=== PATIENT | female | born 1990 | race American Indian/Alaskan Native ===

== ENCOUNTER 2017-11-26 22:22 | Emergency (ER) | payer MEDICAID ==
[2017-11-27 00:47] LABS: Basophils % (Auto) 0.2 % (0.0-1.8); Eosinophils # (Auto) 0.5 K/mm3 (0.0-0.4); Eosinophils % (Auto) 3.8 % (0.0-4.3); Hematocrit 35.9 % (30.3-42.9); Hemoglobin 11.9 gm/dl (10.1-14.3); Lymphocytes # (Auto) 2.3 K/mm3 (1.2-5.4); Mean Corpuscular HGB Conc 33 % (30-34); Mean Corpuscular Hemoglobin 28 pg (28-32); Mean Corpuscular Volume 83 fl (79-97); Monocytes # (Auto) 0.7 K/mm3 (0.0-0.8); Monocytes % (Auto) 5.6 % (0.0-7.3); Platelet Count 212 K/mm3 (140-440); Red Blood Count 4.32 M/mm3 (3.65-5.03)
--- NOTE | 2017-11-27 03:00 | Ultrasound Report ---
FINAL REPORT PROCEDURE: US OB < = 14 WEEKS FETUS TECHNIQUE: Real-time transabdominal sonography of the uterus, placenta, amniotic fluid, adnexa, and fetus was performed with image documentation. Measurements were obtained to determine age/size. M-mode Doppler was used to document heartbeat. CPT 19164 HISTORY: vaginal bleeding COMPARISON: No prior studies are available for comparison. FINDINGS: CRL: 12.3 mm, which corresponds to a gestational age of: 7 weeks, 5 days. Yolk Sac: Normal. Embryonic Cardiac Activity: 156 beats per minute Gestational Sac: Normal. Amniotic fluid: Normal. Cervix: Normal. Right Ovary: Normal. Left Ovary: Normal. Estimated delivery date: 07/11/2018 Uterus and adnexa: Normal. IMPRESSION: Single live intrauterine gestation at approximately 7 weeks and 5 days. EDC by US 07/11/2018
[2017-11-27] MEDS ORDERED: NACL 0.9% 1000 ML 1,000 ML IV ONE (03:01)
[2017-11-27] MEDS ORDERED: ZOFRAN IV ONE (03:01)
--- NOTE | 2017-11-27 03:01 | Ultrasound Report ---
FINAL REPORT PROCEDURE: US OB TRANSVAGINAL TECHNIQUE: Real-time transvaginal sonography of the uterus, placenta, amniotic fluid, adnexa, and fetus was performed with image documentation. Measurements were obtained to determine age/size. M-mode Doppler was used to document heartbeat. HISTORY: vaginal bleeding COMPARISON: No prior studies are available for comparison. FINDINGS: CRL: 12.3 mm, which corresponds to a gestational age of: 7 weeks, 5 days. Yolk Sac: Normal. Embryonic Cardiac Activity: 156 beats per minute Gestational Sac: Normal. Amniotic fluid: Normal. Cervix: Normal. Right Ovary: Normal. Left Ovary: Normal. Estimated delivery date: 07/11/2018 Uterus and adnexa: Normal. IMPRESSION: Single live intrauterine gestation at approximately 7 weeks and 5 days. EDC by US 07/11/2018
[2017-11-27 03:15] LABS: Bilirubin,Urine NEG (Negative); Blood,Urine NEG (Negative); Color,Urine Yellow (Yellow); Hyaline Casts,Urine 1 /LPF; Mucus,Urine FEW /HPF; Protein,Urine <15 mg/dL mg/dL (Negative); Urobilinogen,Urine < 2.0 mg/dL (<2.0)
[2017-11-27 03:29] LABS: Alanine Aminotransferase 10 units/L (7-56); Albumin 4.1 g/dL (3.9-5); BUN/Creatinine Ratio 10; Blood Urea Nitrogen 7 mg/dL (7-17); Calcium 9.3 mg/dL (8.4-10.2); Hemolysis Index 3
--- NOTE | 2017-11-27 03:34 | Emergency Department Report ---
HPI - General Chief Complaint: Vaginal Bleeding Time Seen by Provider: 11/27/17 02:54 - HPI HPI: 27-year-old female presents to the emergency department with complaint of a few weeks of nausea and vomiting to the point where she says "I cannot keep anything down." She also complains of some vaginal spotting that started earlier today. She is currently about 8 weeks . With this she is with 1 live child and 2 previous abortions. She has not taken anything for her symptoms prior presentation. She does not have any OB/ DISSOLVER OPERATOR at this current time. No recent travel or sick contacts at home. ED Past Medical Hx - Past Medical History Previous Medical History?: No - Surgical History Additional Surgical History: Umbilical Hernia Repair, - Social History Smoking Status: Never Smoker Substance Use Type: None - Medications Home Medications: Home Medications Medication Instructions Recorded Confirmed Last Taken Type Ondansetron [Zofran ODT TAB] 4 mg PO Q8H PRN #10 tab.rapdis 11/27/17 Unknown Rx Tablet 1 tab PO DAILY 11/27/17 11/27/17 Unknown History ED Review of Systems ROS: Stated complaint: APPROX 8 WKS PREG, VAGINAL BLEEDING, NAUSEA AND VO Other details as noted in HPI Comment: All other systems reviewed and negative Constitutional: denies: chills, fever Eyes: denies: eye pain, eye discharge, vision change ENT: denies: ear pain, throat pain Respiratory: denies: cough, shortness of breath, wheezing Cardiovascular: denies: chest pain, palpitations Gastrointestinal: nausea, vomiting Genitourinary: other (vaginal bleeding). denies: discharge Musculoskeletal: denies: back pain, joint swelling, arthralgia Skin: denies: rash, lesions Neurological: denies: headache, weakness, paresthesias Physical Exam - Physical Exam Vital Signs: Vital Signs 11/26/17 11/27/17 11/27/17 23:20 00:13 02:43 Temperature 98.3 F 98.3 F 98.6 F Pulse Rate 75 77 67 Respiratory 18 18 16 Rate Blood Pressure 106/60 106/60 Blood Pressure 103/51 [Left] O2 Sat by Pulse 100 100 100 Oximetry Physical Exam: GENERAL: The patient is well-developed well-nourished. HENT: Normocephalic. Atraumatic. Patient has moist mucous membranes. EYES: Extraocular motions are intact. NECK: Supple. No meningitic signs are noted. There is no adenopathy noted. CHEST/LUNGS: Clear to auscultation. There is no respiratory distress noted. HEART/CARDIOVASCULAR: Regular. There is no tachycardia. There is no murmur. ABDOMEN: Abdomen is soft, nontender. Patient has normal bowel sounds. SKIN: Skin is warm and dry. NEURO: patient is awake, alert, and oriented. The patient is cooperative. The patient has no focal neurologic deficits. The patient has normal speech and gait. MUSCULOSKELETAL: There is no tenderness or deformity. There is no limitation range of motion. There is no evidence of acute injury. ED Course Vital Signs 11/26/17 11/27/17 11/27/17 23:20 00:13 02:43 Temperature 98.3 F 98.3 F 98.6 F Pulse Rate 75 77 67 Respiratory 18 18 16 Rate Blood Pressure 106/60 106/60 Blood Pressure 103/51 [Left] O2 Sat by Pulse 100 100 100 Oximetry ED Medical Decision Making - Lab Data Result diagrams: 11/27/17 00:24 11/27/17 03:00 - Radiology Data Radiology results: report reviewed PROCEDURE: US OB TRANSVAGINAL TECHNIQUE: Real-time transvaginal sonography of the uterus, placenta, amniotic fluid, adnexa, and fetus was performed with image documentation. Measurements were obtained to determine age/size. M-mode Doppler was used to document heartbeat. HISTORY: vaginal bleeding COMPARISON: No prior studies are available for comparison. FINDINGS: CRL: 12.3 mm, which corresponds to a gestational age of: 7 weeks, 5 days. Yolk Sac: Normal. Embryonic Cardiac Activity: 156 beats per minute Gestational Sac: Normal. Amniotic fluid: Normal. Cervix: Normal. Right Ovary: Normal. Left Ovary: Normal. Estimated delivery date: 07/11/2018 Uterus and adnexa: Normal. IMPRESSION: Single live intrauterine gestation at approximately 7 weeks and 5 days. EDC by US 07/11/2018 Transcribed By: CO Dictated By: JELENA COLEMAN MD Electronically Authenticated By: JELENA COLEMAN MD Signed Date/Time: 11/27/17 0254 - Medical Decision Making Patient presented with complaint of nausea and vomiting as well as some mild vaginal spotting while . Ultrasound shows a similar intrauterine gestation at approximately 7 weeks and 5 days with an appropriate cardiac activity. The patient's labs are unremarkable. She was able to pass an oral challenge. She requested Zofran and understands the small possible risk with using that medication while . She is already on vitamins. The patient says that the vaginal spotting has slowed up. Despite the vaginal spotting meperidine, the patient does have a live intrauterine gestation. She will continue with the vitamins. She will follow up with EMPLOYMENT COORDINATOR. She will increase her oral rehydration. She will return to the ER with any increase in the vaginal bleeding, any sharp abdominal cramping pains, with the inability to stay hydrated, with any acute distress. - Differential Diagnosis , threatened miscarriage, spontaneous miscarriage, fibroids, UTI Critical Care Time: No Critical care attestation.: If time is entered above; I have spent that time in minutes in the direct care of this critically ill patient, excluding procedure time. ED Disposition Clinical Impression: Qualifiers: Weeks of gestation: less than 8 weeks Qualified Code(s): Z3A.01 - Less than 8 weeks gestation of Nausea & vomiting Qualifiers: Vomiting type: unspecified Vomiting Intractability: non-intractable Qualified Code(s): R11.2 - Nausea with vomiting, unspecified Disposition: DC-01 TO HOME OR SELFCARE Is pt being admited?: No Condition: Stable Instructions: (ED), Acute Nausea and Vomiting (ED) Additional Instructions: Please follow up with an EMPLOYMENT COORDINATOR as soon as possible. Return to the emergency department if there is any return or increase of vaginal bleeding, worsening of your symptoms, inability to keep down water and keep hydrated, or with any acute distress. Continue with your vitamins. Prescriptions: Ondansetron [Zofran ODT TAB] 4 mg PO Q8H PRN #10 tab.rapdis PRN Reason: Nausea Referrals: [facility] [Provider Group] - [facility] [Provider Group] - [facility] [Provider [facility]] - [facility] Forms: Work/School Release Form(ED) Time of Disposition: 03:41
[2017-11-27] MEDS ORDERED: ZOFRAN ODT PO ONE (03:39)
[2017-11-27 04:43] VITALS: BP 106/47
== END 2017-11-27 04:10 | disposition home or self-care (01) ==
LOC: ED 22:22
DX: O21.9 Vomiting of pregnancy, unspecified (principal); Z3A.01 Less than 8 weeks gestation of pregnancy
CPT/HCPCS: 36415; 76801; 76817; 80053; 81001; 84702; 85025; 86850; 86900; 86901; Q0162

== ENCOUNTER 2017-12-24 23:12 | Emergency (ER) | payer MEDICAID ==
[2017-12-25] MEDS ORDERED: ZOFRAN ODT PO ONE (01:15)
[2017-12-25] MEDS ORDERED: TYLENOL PO ONE (01:15)
[2017-12-25 02:04] LABS: Basophils % (Auto) 0.2 % (0.0-1.8); Eosinophils # (Auto) 0.9 K/mm3 (0.0-0.4); Eosinophils % (Auto) 5.8 % (0.0-4.3); Hematocrit 38.1 % (30.3-42.9); Hemoglobin 12.6 gm/dl (10.1-14.3); Lymphocytes # (Auto) 2.4 K/mm3 (1.2-5.4); Mean Corpuscular HGB Conc 33 % (30-34); Mean Corpuscular Hemoglobin 27 pg (28-32); Mean Corpuscular Volume 83 fl (79-97); Monocytes % (Auto) 6.5 % (0.0-7.3); Platelet Count 192 K/mm3 (140-440); Red Blood Count 4.61 M/mm3 (3.65-5.03); Red Cell Distribution Width 14.3 % (13.2-15.2)
[2017-12-25 02:48] LABS: BUN/Creatinine Ratio 22; Blood Urea Nitrogen 11 mg/dL (7-17); Calcium 9.7 mg/dL (8.4-10.2); Hemolysis Index 1
--- NOTE | 2017-12-25 03:29 | Emergency Department Report ---
HPI - General Chief Complaint: Abdominal Pain Time Seen by Provider: 12/25/17 03:11 - HPI HPI: Room 8 The patient is a 27-year-old female presenting with a chief complaint of abdominal pain. The patient states for 1.5 months she's had pain in the midabdomen as well as a swelling she believes is a hernia. The patient is also 11 weeks but has not yet sought medical attention secondary to lack of insurance. The patient denies vaginal bleeding or fever. The patient admits to occasional nausea vomiting over the past 1.5 months. The patient states her last bowel movement occurred one or 2 days ago. Location: Abdomen Duration: 1.5 months Quality: Pain Severity: Moderate Modifying factors: [see above] Context: [see above] Mode of transportation: [not driving] ED Past Medical Hx - Past Medical History Previous Medical History?: No - Surgical History Additional Surgical History: Umbilical Hernia Repair, - Family History Family history: no significant - Social History Smoking Status: Never Smoker Substance Use Type: None - Medications Home Medications: Home Medications Medication Instructions Recorded Confirmed Last Taken Type Ondansetron [Zofran ODT TAB] 4 mg PO Q8H PRN #10 tab.rapdis 11/27/17 Unknown Rx Tablet 1 tab PO DAILY 11/27/17 11/27/17 Unknown History Doxylamine Succinate/Vit B6 2 each PO QHS #30 tablet.dr 12/25/17 Unknown Rx [Patricia Sagastume 10-10 mg Tablet] Metoclopramide [Reglan] 10 mg PO TID #30 tab 12/25/17 Unknown Rx Nitrofurantoin Monohyd/M-Cryst 100 mg PO BID #14 capsule 12/25/17 Unknown Rx [Macrobid 100 mg Capsule] ED Review of Systems ROS: Stated complaint: 11WKS PREG/CRAMPING/EMESIS Other details as noted in HPI Constitutional: denies: fever Eyes: denies: eye pain ENT: denies: throat pain Respiratory: no symptoms reported Cardiovascular: denies: chest pain Endocrine: no symptoms reported Gastrointestinal: abdominal pain, nausea, vomiting. denies: diarrhea Genitourinary: denies: dysuria Musculoskeletal: denies: back pain Neurological: denies: headache Physical Exam - Physical Exam Vital Signs: Vital Signs 12/25/17 12/25/17 01:10 03:16 Temperature 98.5 F 98.3 F Pulse Rate 82 Respiratory 16 Rate Blood Pressure 115/63 O2 Sat by Pulse 100 Oximetry Physical Exam: GENERAL: The patient is well-developed well-nourished female lying on stretcher not appearing to be in acute distress. [] HEENT: Normocephalic. Atraumatic. Extraocular motions are intact. Patient has moist mucous membranes. NECK: Supple. Trachea midline CHEST/LUNGS: Clear to auscultation. There is no respiratory distress noted. HEART/CARDIOVASCULAR: Regular. There is no tachycardia. There is no gallop rub or murmur. ABDOMEN: Abdomen is soft, nontender. Patient has normal bowel sounds. There is a large ventral hernia that is easily reducible SKIN: There is no rash. There is no edema. There is no diaphoresis. NEURO: The patient is awake, alert, and oriented. The patient is cooperative. The patient has normal speech MUSCULOSKELETAL: There is no evidence of acute injury. ED Course Vital Signs 12/25/17 12/25/17 01:10 03:16 Temperature 98.5 F 98.3 F Pulse Rate 82 Respiratory 16 Rate Blood Pressure 115/63 O2 Sat by Pulse 100 Oximetry ED Medical Decision Making - Lab Data Result diagrams: 12/25/17 01:29 12/25/17 01:29 Laboratory Tests 12/25/17 12/25/17 12/25/17 01:29 01:29 01:29 WBC 14.7 H RBC 4.61 Hgb 12.6 Hct 38.1 MCV 83 MCH 27 L MCHC 33 RDW 14.3 Plt Count 192 Lymph % (Auto) 16.0 Mitchell % (Auto) 6.5 Eos % (Auto) 5.8 H Baso % (Auto) 0.2 Lymph # 2.4 Mitchell # 1.0 H Eos # 0.9 H Baso # 0.0 Seg Neutrophils % 71.5 H Seg Neutrophils # 10.5 H Sodium 138 Potassium 4.3 Chloride 100.9 Carbon Dioxide 24 Anion Gap 17 BUN 11 Creatinine 0.5 L Estimated GFR > 60 BUN/Creatinine Ratio 22 Glucose 91 Calcium 9.7 HCG, Quant 79512 H Urine Color Urine Turbidity Urine pH Ur Specific Cook Urine Protein Urine Glucose (UA) Urine Ketones Urine Blood Urine Nitrite Urine Bilirubin Urine Urobilinogen Ur Leukocyte Esterase Urine WBC (Auto) Urine RBC (Auto) U Epithel Cells (Auto) Urine Bacteria (Auto) Urine Mucus 12/25/17 Unknown WBC RBC Hgb Hct MCV MCH MCHC RDW Plt Count Lymph % (Auto) Mitchell % (Auto) Eos % (Auto) Baso % (Auto) Lymph # Mitchell # Eos # Baso # Seg Neutrophils % Seg Neutrophils # Sodium Potassium Chloride Carbon Dioxide Anion Gap BUN Creatinine Estimated GFR BUN/Creatinine Ratio Glucose Calcium HCG, Quant Urine Color Yellow Urine Turbidity Clear Urine pH 6.0 Ur Specific Cook 1.027 Urine Protein <15 mg/dl Urine Glucose (UA) Neg Urine Ketones Neg Urine Blood Neg Urine Nitrite Neg Urine Bilirubin Neg Urine Urobilinogen 4.0 Ur Leukocyte Esterase Neg Urine WBC (Auto) 3.0 Urine RBC (Auto) 1.0 U Epithel Cells (Auto) 3.0 Urine Bacteria (Auto) 1+ Urine Mucus Few - Differential Diagnosis ventral hernia, Critical care attestation.: If time is entered above; I have spent that time in minutes in the direct care of this critically ill patient, excluding procedure time. ED Disposition Clinical Impression: Ventral hernia, , Bacteria in urine, Leukocytosis Disposition: DC- TO HOME OR SELFCARE Is pt being admited?: No Does the pt Need Aspirin: No Condition: Stable Instructions: Abdominal Pain (ED), Ventral Hernia (ED) Additional Instructions: Return to the emergency department immediately should you develop worsening symptoms, fever, inability to tolerate food or liquid or any other concerns. Prescriptions: Doxylamine Succinate/Vit B6 [Diclegis Dr 10-10 mg Tablet] 2 each PO QHS #30 tablet. Metoclopramide [Reglan] 10 mg PO TID #30 tab Nitrofurantoin Monohyd/M-Cryst [Macrobid 100 mg Capsule] 100 mg PO BID #14 capsule Referrals: PRIMARY CARE, [Primary Care Provider] - 3-5 Days JYOTSNA SALEH DO [Staff Physician] - 3-5 Days (Dr. Saleh is a surgeon. Please follow up with her for further evaluation) Time of Disposition: 05:45
[2017-12-25 03:44] LABS: Bacteria,Urine 1+ /HPF (Negative); Bilirubin,Urine NEG (Negative); Blood,Urine NEG (Negative); Color,Urine Yellow (Yellow); Mucus,Urine FEW /HPF; Protein,Urine <15 mg/dL mg/dL (Negative)
--- NOTE | 2017-12-25 05:36 | Ultrasound Report ---
FINAL REPORT PROCEDURE: US OB < = 14 WEEKS FETUS TECHNIQUE: Real-time transabdominal sonography of the uterus, placenta, amniotic fluid, adnexa, and fetus was performed with image documentation. Measurements were obtained to determine age/size. M-mode Doppler was used to document heartbeat. CPT 96985 HISTORY: abdominal pain COMPARISON: No prior studies are available for comparison. FINDINGS: CRL: 53.9 mm, which corresponds to a gestational age of: 11 weeks, 6 days. Yolk Sac: Normal. Embryonic Cardiac Activity: 149 beats per minute Gestational Sac: Normal. Amniotic fluid: Normal. Cervix: Normal. Right Ovary: Normal. Left Ovary: Not identified Estimated delivery date: 07/10/2018 Uterus and adnexa: Normal. IMPRESSION: Single live intrauterine gestation at approximately 11 weeks and 6 days. EDC by US 07/10/2018
--- NOTE | 2017-12-25 05:37 | Ultrasound Report ---
FINAL REPORT PROCEDURE: US OB transvaginal TECHNIQUE: Real-time transvaginal sonography of the uterus, placenta, amniotic fluid, adnexa, and fetus was performed with image documentation. Measurements were obtained to determine age/size. M-mode Doppler was used to document heartbeat. HISTORY: abdominal pain COMPARISON: No prior studies are available for comparison. FINDINGS: CRL: 53.9 mm, which corresponds to a gestational age of: 11 weeks, 6 days. Yolk Sac: Normal. Embryonic Cardiac Activity: 149 beats per minute Gestational Sac: Normal. Amniotic fluid: Normal. Cervix: Normal. Right Ovary: Normal. Left Ovary: Not identified Estimated delivery date: 07/10/2018 Uterus and adnexa: Normal. IMPRESSION: Single live intrauterine gestation at approximately 11 weeks and 6 days. EDC by US 07/10/2018
[2017-12-25 05:59] VITALS: BP 128/75
== END 2017-12-25 05:53 | disposition home or self-care (01) ==
LOC: ED 23:12
DX: O26.891 Other specified pregnancy related conditions, first trimester (principal); K43.9 Ventral hernia without obstruction or gangrene; R82.71 Bacteriuria; D72.829 Elevated white blood cell count, unspecified; Z3A.11 11 weeks gestation of pregnancy
CPT/HCPCS: 36415; 76801; 76817; 80048; 81001; 84702; 85025; Q0162